=== PATIENT | male | born 1960 | race Caucasian/White ===

== ENCOUNTER → 2020-04-08 18:21 | Outpatient (CLI) | payer OTHER, SELFPAY ==
[2020-04-08 18:54] LABS: Basophils % 0.5 % (0.1-2.0); Eosinophils # 1.2 K/mm3 (0.0-0.4); Eosinophils % 15.5 % (0.1-12.0); Hematocrit 44.7 % (42.0-52.0); Hemoglobin 15.3 g/dL (14.1-18.0); Lymphocytes # 1.7 K/mm3 (0.7-4.5); Lymphocytes % 22.4 % (10-50); Mean Corpuscular HGB Conc 34.2 g/dL (31.8-35.4); Mean Corpuscular Hemoglobin 30.2 pg (27.0-31.2); Mean Corpuscular Volume 88.4 fl (80-94); Mean Platelet Volume 8.2 fl (7.4-10.4); Monocytes # 0.6 K/mm3 (0.1-1.0); Monocytes % 8.4 % (1.7-9.3); Neutrophils % 53.3 % (37.0-80.0); Platelet Count 221 K/mm3 (142-424); Red Blood Count 5.06 M/mm3 (4.60-6.20); Red Cell Distribution Width 13.1 % (11.5-17.5); White Blood Count 7.5 K/mm3 (4.8-10.8)
[2020-04-08 19:05] LABS: Alanine Aminotransferase 24 U/L (12-78); Albumin Level 3.6 g/dl (3.5-5.0); Albumin/Globulin Ratio 1.4 (1.1-1.8); Alkaline Phosphatase 138 U/L (38-126); Aspartate Amino Transferase 36 U/L (17-59); Bilirubin,Total 0.3 mg/dl (0.2-1.3); Blood Urea Nitrogen 14 mg/dl (9-20); Calcium 8.7 mg/dl (8.4-10.2); Carbon Dioxide 26 mmol/L (22.0-30.0); Chloride 101 mmol/L (98-107); Chol/HDL Ratio 3.8 (1-3.5); Cholesterol 187 mg/dl (140-200); Estimated Glomerular Filt Rate 137 ml/min (>60); GFR (African American) 166 ML/MIN (>60); Globulin 2.5 g/dL (1.3-3.2); Glucose 110 mg/dl (74-100); HDL Cholesterol 49 mg/dl (40-60); Sodium 136 mmol/L (136-145); Total Protein,Serum 6.1 g/dl (6.3-8.2); Triglycerides 116 mg/dl (30-150); VLDL Cholesterol 23 mg/dL (0-40)
[2020-04-08 19:17] LABS: Direct LDL Cholesterol 136.42 mg/dL (100-129)
[2020-04-08 19:20] LABS: 25-OH Vitamin D, Total 25.7 ng/mL (30-100)
[2020-04-08 19:24] LABS: T4 (Thyroxine) 11.2 ug/dl (5.53-11.0)
[2020-04-08 19:37] LABS: Hemoglobin A1C 5.9 % (4.0-6.0); Prostate Specific Ag Screen 0.8 ng/ml (0.0-4.0); Thyroid Stimulating Hormone 1.28 uIU/mL (0.465-4.68)
[2020-04-15 05:35] LABS: Testosterone,Free 2.2 pg/mL (6.6-18.1)
== END ==
PROVIDERS: Visit Provider Nurse Practitioner Family
DX: Z00.00 Encounter for general adult medical examination without abnormal findings (principal); R73.03 Prediabetes; E55.9 Vitamin D deficiency, unspecified; Z12.5 Encounter for screening for malignant neoplasm of prostate
CPT/HCPCS: 80053; 80061; 82306; 83036; 84402; 84436; 84443; 85025; G0103

== ENCOUNTER → 2021-04-05 17:56 | Outpatient (CLI) | payer OTHER, SELFPAY ==
[2021-04-05 19:23] LABS: Benzodiazepines Screen,Urine Negative ng/ml (<200)
[2021-04-05 19:24] LABS: Amphetamine/Metha Screen,Urine Negative ng/ml (<1000)
[2021-04-05 19:25] LABS: Barbiturates Screen,Urine Negative ng/ml (<200); Methadone Screen,Urine Negative ng/ml (<300)
[2021-04-05 19:26] LABS: Cannabinoid Screen,Urine Positive ng/ml (<50)
[2021-04-05 19:27] LABS: Cocaine Screen,Urine Negative ng/ml (<300); Opiate Screen,Urine Negative ng/ml (<300)
[2021-04-05 19:28] LABS: Phencyclidine Screen,Urine Negative ng/ml (<25)
== END ==
PROVIDERS: Visit Provider Nurse Practitioner Family
DX: M54.9 Dorsalgia, unspecified (principal)
CPT/HCPCS: 80305

== ENCOUNTER → 2021-07-15 17:27 | Outpatient (CLI) | payer OTHER, SELFPAY ==
[2021-07-15 20:09] LABS: Benzodiazepines Screen,Urine Negative ng/ml (<200)
[2021-07-15 20:10] LABS: Amphetamine/Metha Screen,Urine Negative ng/ml (<1000); Barbiturates Screen,Urine Negative ng/ml (<200)
[2021-07-15 20:11] LABS: Cannabinoid Screen,Urine Negative ng/ml (<50)
[2021-07-15 20:12] LABS: Cocaine Screen,Urine Negative ng/ml (<300); Methadone Screen,Urine Negative ng/ml (<300)
[2021-07-15 20:13] LABS: Opiate Screen,Urine Negative ng/ml (<300)
[2021-07-15 20:14] LABS: Phencyclidine Screen,Urine Negative ng/ml (<25)
== END ==
PROVIDERS: Visit Provider Nurse Practitioner Family
DX: Z02.83 Encounter for blood-alcohol and blood-drug test (principal); Z76.0 Encounter for issue of repeat prescription
CPT/HCPCS: 80305

== ENCOUNTER → 2022-04-12 06:37 | Outpatient (CLI) | payer OTHER, SELFPAY ==
[2022-04-12 20:44] LABS: Basophils # 0.1 K/mm3 (0-0.2); Eosinophils # 0.7 K/mm3 (0.0-0.4); Eosinophils % 6.2 % (0.1-12.0); Hematocrit 47.4 % (42.0-52.0); Hemoglobin 15.6 g/dL (14.1-18.0); Lymphocytes # 2.9 K/mm3 (0.7-4.5); Lymphocytes % 26.8 % (10-50); Mean Corpuscular HGB Conc 32.9 g/dL (31.8-35.4); Mean Corpuscular Hemoglobin 29.4 pg (27.0-31.2); Mean Corpuscular Volume 89.2 fl (80-94); Monocytes # 0.7 K/mm3 (0.1-1.0); Monocytes % 6.6 % (1.7-9.3); Neutrophils # 6.6 K/mm3 (1.8-7.8); Neutrophils % 60.4 % (37.0-80.0); Platelet Count 227 K/mm3 (142-424); Red Blood Count 5.31 M/mm3 (4.60-6.20); Red Cell Distribution Width 15.1 % (11.5-17.5); White Blood Count 10.9 K/mm3 (4.8-10.8)
[2022-04-12 22:11] LABS: Alanine Aminotransferase 27 U/L (12-78); Albumin Level 3.8 g/dl (3.5-5.0); Albumin/Globulin Ratio 1.4 (1.1-1.8); Alkaline Phosphatase 158 U/L (38-126); Anion Gap 15.3 mEq/L (5-15); Aspartate Amino Transferase 29 U/L (17-59); Blood Urea Nitrogen 15 mg/dl (9-20); Calcium 8.8 mg/dl (8.4-10.2); Carbon Dioxide 24 mmol/L (22.0-30.0); Chloride 102 mmol/L (98-107); Chol/HDL Ratio 4.2 (1-3.5); Cholesterol 232 mg/dl (140-200); Estimated Glomerular Filt Rate 114 ml/min (>60); GFR (African American) 138 ML/MIN (>60); Globulin 2.8 g/dL (1.3-3.2); Glucose 91 mg/dl (74-100); HDL Cholesterol 55 mg/dl (40-60); Potassium 4.3 mmoL/L (3.5-5.1); Sodium 137 mmol/L (136-145); Total Protein,Serum 6.6 g/dl (6.3-8.2); Triglycerides 112 mg/dl (30-150); VLDL Cholesterol 22 mg/dL (0-40)
[2022-04-12 22:12] LABS: Bilirubin,Total < 0.1 mg/dl (0.2-1.3)
[2022-04-12 22:21] LABS: Hemoglobin A1C 5.5 % (4.0-6.0)
[2022-04-12 22:22] LABS: Direct LDL Cholesterol 153.41 mg/dL (100-129)
[2022-04-12 22:42] LABS: Thyroid Stimulating Hormone 2.56 uIU/mL (0.465-4.68)
== END ==
PROVIDERS: PCP Family Medicine; Visit Provider Family Medicine
DX: R73.03 Prediabetes (principal); Z79.899 Other long term (current) drug therapy; Z12.5 Encounter for screening for malignant neoplasm of prostate
CPT/HCPCS: 80053; 80061; 83036; 84443; 85025; G0103

== ENCOUNTER → 2022-12-01 23:27 | Outpatient (CLI) | payer OTHER, SELFPAY ==
[2022-12-01 18:14] LABS: Hemoglobin A1C 5.6 % (4.0-6.0)
[2022-12-01 18:31] LABS: Free T4 (Free Thyroxine) 1.09 ng/dl (0.78-2.19)
[2022-12-01 18:32] LABS: T4 (Thyroxine) 10.1 ug/dl (5.53-11.0)
[2022-12-01 18:46] LABS: Thyroid Stimulating Hormone 1.07 uIU/mL (0.465-4.68)
[2022-12-09 04:09] LABS: Testosterone,Free 0.9 pg/mL (6.6-18.1)
== END ==
PROVIDERS: PCP Nurse Practitioner Family; Visit Provider Nurse Practitioner Family
DX: R73.03 Prediabetes (principal); E29.1 Testicular hypofunction
CPT/HCPCS: 83036; 84402; 84403; 84436; 84439; 84443